=== PATIENT | female | born 1960 | race Caucasian/White ===

== ENCOUNTER 2020-01-16 06:45 | Day surgery (SDC) | payer BC, SELFPAY ==
[~2020-01-16] VITALS: Ht 167.6 cm; Wt 79.4 kg
[2020-01-16] MEDS ORDERED: CEFAZOLIN 1 GM IVPB PREMIX 50 ML IV ONE (07:00)
[2020-01-16] MEDS ORDERED: ONDANSETRON HCL 4 MG/2 ML VIAL IVP PRN (08:30)
[2020-01-16] MEDS ORDERED: fentaNYL CITRATE/PF 100 MCG/2 ML AMP IVP PRN ×2 (08:30)
[2020-01-16] MEDS ORDERED: LIDOCAINE 1%, 20 ML MDV 20 ML ONE (08:37)
[2020-01-16] MEDS ORDERED: AMMONIA INHALANT 0.3mL AMPUL INH ONE (08:54)
[2020-01-16] MEDS ORDERED: fentaNYL CITRATE/PF 100 MCG/2 ML AMP IVP ONE (09:00)
[2020-01-16] MEDS ORDERED: ONDANSETRON HCL 4 MG/2 ML VIAL IVP ONE (09:00)
[2020-01-16] MEDS ORDERED: MIDAZOLAM HCL 5 MG/5 ML VIAL IVP ONE (09:00)
[2020-01-16] MEDS ORDERED: HYDROmorphone 2 MG/ML VIAL IVP ONE (09:00)
[2020-01-16] MEDS ORDERED: PROPOFOL 200MG/ 20ML VIAL (DIPRIVAN) IV ONE (09:00)
[2020-01-16] MEDS ORDERED: LR 1,000 ML IV.SOLN IV ONE (09:00)
[2020-01-16] MEDS ORDERED: NS IRRIG SOLN 1000 ML IR ONE (09:00)
[2020-01-16] MEDS ORDERED: SEVOFLURANE 15 MIN GAS INH ONE (09:00)
[2020-01-16] MEDS ORDERED: D5/0.45 NS 1,000 ML IV SCH (10:39)
[2020-01-16] MEDS ORDERED: HYDROcodone/ACETAMIN 5-325 MG TAB (NORCO/ VICODIN) PO PRN ×2 (10:45)
[2020-01-16] MEDS ORDERED: HYDROmorphone 2 MG/ML VIAL IVP PRN (10:45)
[2020-01-16 15:24] VITALS: BP_SYST 123
== END 2020-01-16 14:30 | disposition home or self-care (01) ==
LOC: SMU 06:45 → SDS 06:45 → EDSTATUS 08:40 → SDS 11:05
PROVIDERS: ATTEND Colon & Rectal Surgery
DX: C50.911 Malignant neoplasm of unspecified site of right female breast (principal); C77.3 Secondary and unspecified malignant neoplasm of axilla and upper limb lymph nodes
CPT/HCPCS: 19281; 19301; 38525; 88305; 88307; 88333; J0690; J1170; J2001; J2250; J2405; J2704; J3010; J7120; U0002

== ENCOUNTER 2020-02-27 07:00 | Day surgery (SDC) | payer BC, SELFPAY ==
[~2020-02-27] VITALS: Ht 167.6 cm; Wt 81.6 kg
[~2020-02-27 07:00] MED LIST: BUPIVACAINE /EPINEPHRINE/PF 0.25% 30 ML VIAL INJ ONE; CEFAZOLIN SOD 1 GM in D5W 50 ML IV ONE; DEXAMETHASONE SOD PHOSPHATE 4 MG/ML VIAL IVP ONE; HEPARIN SODIUM, PORCINE 10,000 UNITS/ 10 ML VIAL MC ONE; LIDOCAINE 1% 10 MG/ML, 20 ML MDV INJ ONE; LR 1,000 ML IV.SOLN IV ONE; MIDAZOLAM HCL 5 MG/5 ML VIAL IVP ONE; NS 100 ML BAG IV ONE; NS IRRIG SOLN 1000 ML IR ONE; ONDANSETRON HCL 4 MG/2 ML VIAL IVP ONE; SEVOFLURANE 15 MIN GAS INH ONE; ePHEDrine sulfate 50 MG/ML VIAL IVP ONE; fentaNYL CITRATE/PF 100 MCG/2 ML AMP IVP ONE
[2020-02-27] MEDS ORDERED: POLYMYXIN 500,000/BACIT.10,000 UNITS in NS IRR 1 L IR ONE (09:38)
[2020-02-27] MEDS ORDERED: MEPERIDINE HCL/PF 25 MG/ML DISP.SYRIN IVP PRN (10:00)
[2020-02-27] MEDS ORDERED: HYDROmorphone 1 MG INJ. 1 MG/ML AMPUL IVP PRN ×3 (10:00→10:30)
[2020-02-27] MEDS ORDERED: ONDANSETRON HCL 4 MG/2 ML VIAL IVP PRN (10:00)
[2020-02-27] MEDS ORDERED: METOCLOPRAMIDE HCL 10 MG/2 ML VIAL IVP PRN (10:00)
[2020-02-27] MEDS ORDERED: LR 1,000 ML IV SCH (10:00)
[2020-02-27] MEDS ORDERED: MIDAZOLAM HCL 2 MG/2 ML VIAL (VERSED) IVP PRN (10:00)
[2020-02-27] MEDS ORDERED: D5/0.45 NS 1,000 ML IV SCH (10:28)
[2020-02-27] MEDS ORDERED: HYDROcodone/ACETAMIN 5-325 MG TAB (NORCO/ VICODIN) PO PRN ×2 (10:30)
[2020-02-27 11:27] VITALS: BP_SYST 127
== END 2020-02-27 12:50 | disposition home or self-care (01) ==
LOC: SMU 07:00 → SDS 07:00
PROVIDERS: ATTEND Colon & Rectal Surgery
DX: C50.911 Malignant neoplasm of unspecified site of right female breast (principal); E03.9 Hypothyroidism, unspecified; Z79.899 Other long term (current) drug therapy; Z11.59 Encounter for screening for other viral diseases
CPT/HCPCS: 36571; 71045; 77001; C1788; J0690; J1100; J1644; J2001; J2250; J2405; J3010; J3490; J7060; J7120 ×2; U0003; 76000

== ENCOUNTER 2020-12-24 07:29 | Day surgery (SDC) | payer BC, SELFPAY ==
[~2020-12-24] VITALS: Ht 165.1 cm; Wt 81.6 kg
[~2020-12-24 07:29] MED LIST changes: -BUPIVACAINE /EPINEPHRINE/PF 0.25% 30 ML VIAL INJ ONE; -DEXAMETHASONE SOD PHOSPHATE 4 MG/ML VIAL IVP ONE; -HEPARIN SODIUM, PORCINE 10,000 UNITS/ 10 ML VIAL MC ONE; -LIDOCAINE 1% 10 MG/ML, 20 ML MDV INJ ONE; -LR 1,000 ML IV.SOLN IV ONE; -MIDAZOLAM HCL 5 MG/5 ML VIAL IVP ONE; -NS 100 ML BAG IV ONE; -NS IRRIG SOLN 1000 ML IR ONE; -ONDANSETRON HCL 4 MG/2 ML VIAL IVP ONE; -SEVOFLURANE 15 MIN GAS INH ONE; -ePHEDrine sulfate 50 MG/ML VIAL IVP ONE; -fentaNYL CITRATE/PF 100 MCG/2 ML AMP IVP ONE
[2020-12-24 10:01] LABS: PROTHROMBIN TIME 10.7 SECS (9.5-12.5)
[2020-12-24] MEDS ORDERED: LR 500 ML IV.SOLN IV ONE (11:01)
[2020-12-24] MEDS ORDERED: fentaNYL CITRATE 250 MCG/5 ML AMP IV ONE (11:01)
[2020-12-24] MEDS ORDERED: SEVOFLURANE 15 MIN GAS INH ONE (11:01)
[2020-12-24] MEDS ORDERED: CEFAZOLIN 2 GM IVPB PREMIX 50 ML IV ONE (11:01)
[2020-12-24] MEDS ORDERED: DEXAMETHASONE SOD PHOSPHATE 4 MG/ML VIAL IVP ONE (11:01)
[2020-12-24] MEDS ORDERED: ONDANSETRON HCL 4 MG/2 ML VIAL IVP ONE (11:01)
[2020-12-24] MEDS ORDERED: MIDAZOLAM HCL 5 MG/5 ML VIAL IVP ONE (11:01)
[2020-12-24] MEDS ORDERED: BUPIVACAINE /PF 0.25% 30 ML VIAL INJ ONE (11:01)
[2020-12-24] MEDS ORDERED: GLYCOPYRROLATE 0.2 MG/ML VIAL IJ ONE (11:01)
[2020-12-24] MEDS ORDERED: NS IRRIG SOLN 1000 ML IR ONE (11:01)
[2020-12-24] MEDS ORDERED: PROPOFOL 200MG/ 20ML VIAL (DIPRIVAN) IV ONE (11:01)
[2020-12-24] MEDS ORDERED: HYDROmorphone 1 INJ. 1 MG/ML CARTRIDGE IVP PRN ×3 (12:00→14:00)
[2020-12-24] MEDS ORDERED: ONDANSETRON HCL 4 MG/2 ML VIAL IVP PRN (12:00)
[2020-12-24] MEDS ORDERED: MIDAZOLAM HCL 2 MG/2 ML VIAL (VERSED) IVP PRN (12:00)
[2020-12-24] MEDS ORDERED: METOCLOPRAMIDE HCL 10 MG/2 ML VIAL IVP PRN (12:00)
[2020-12-24] MEDS ORDERED: MEPERIDINE HCL/PF 25 MG/ML DISP.SYRIN IVP PRN (12:00)
[2020-12-24] MEDS ORDERED: LR 1,000 ML IV SCH (12:00)
[2020-12-24] MEDS ORDERED: D5/0.45 NS 1,000 ML IV SCH (12:30)
[2020-12-24] MEDS: HYDROmorphone 1 INJ. 1 MG/ML CARTRIDGE ONE ×2 (13:13→13:18)
[2020-12-24] MEDS ORDERED: HYDROcodone/ACETAMIN 5-325 MG TAB (NORCO/ VICODIN) PO PRN ×2 (14:00)
[2020-12-24 14:12] VITALS: BP_SYST 130
== END 2020-12-24 15:20 | disposition home or self-care (01) ==
LOC: SDS 07:29 → SMU 07:29 → SDS 15:20
PROVIDERS: ATTEND Colon & Rectal Surgery
DX: R59.0 Localized enlarged lymph nodes (principal); N63.10 Unspecified lump in the right breast, unspecified quadrant; E03.9 Hypothyroidism, unspecified; E66.9 Obesity, unspecified; Z79.01 Long term (current) use of anticoagulants; Z79.899 Other long term (current) drug therapy; Z20.828 Contact with and (suspected) exposure to other viral communicable diseases
CPT/HCPCS: 36415; 38525; 85610; 85730; 88305; J0690 ×2; J1100; J1170; J2250; J2405; J2704; J3010; J3490 ×2; J7060; J7120; U0003; 88307

== ENCOUNTER 2022-12-18 15:51 | Inpatient (IN) | payer BC ==
[~2022-12-18] VITALS: Ht 165.1 cm; Wt 77.1 kg
[2022-12-18 15:55] VITALS: BP_SYST 144
[2022-12-18 16:47] LABS: BASOPHILS % (AUTO) 0.3 % (0.0-2.0); EOSINOPHILS # (AUTO) 0.1 K/uL (0.0-0.4); EOSINOPHILS % (AUTO) 0.9 % (0.0-4.0); HEMATOCRIT 41.6 % (36-48); HEMOGLOBIN 14.3 g/dL (12.0-16.0); LYMPHOCYTES # (AUTO) 0.5 K/uL (1.0-5.5); LYMPHOCYTES % (AUTO) 5.9 % (20.5-51.5); MEAN CORPUSCULAR HEMOGLOBIN 30 pg (27-31); MEAN CORPUSCULAR HGB CONC 34 % (32-36); MEAN CORPUSCULAR VOLUME 88 fL (79.0-98.0); MONOCYTES # (AUTO) 0.7 K/uL (0.0-1.0); MONOCYTES % (AUTO) 8.4 % (1.7-9.3); NEUTROPHILS # (AUTO) 7.3 K/uL (1.8-7.7); NEUTROPHILS % (AUTO) 84.5 % (40.0-70.0); PLATELET COUNT (AUTO) 295 K/uL (130-430); RED BLOOD CELL COUNT(AUTO) 4.72 MIL/uL (4.2-6.2); RED CELL DISTRIBUTION WIDTH 13.8 % (9.0-15.0); WHITE BLOOD COUNT (AUTO) 8.6 K/uL (4.8-10.8)
[2022-12-18 17:03] LABS: ANION GAP 6 (5-15); CALCIUM 7.7 mg/dL (8.4-11.0); CHLORIDE 96 mmol/L (98-107); CREATININE 0.79 mg/dL (0.55-1.30); GFR AFRICAN AMERICAN 95 mL/min (>90); GLUCOSE 123 mg/dL (70-99); UREA NITROGEN, BLOOD 14 mg/dL (8-21)
[2022-12-18 17:10] LABS: ALANINE AMINOTRANSFERASE 58 U/L (12-78); ALBUMIN 2.4 g/dL (3.4-4.8); ASPARTATE AMINOTRANSFERASE 126 U/L (10-37); TOTAL BILIRUBIN 0.5 mg/dL (0.0-1.0)
[2022-12-18] MEDS ORDERED: cefTRIAXone 1 GM IVPB PREMIX 50 ML IV ONE (17:45)
[2022-12-18] MEDS ORDERED: iohexoL 350 mgI/mL, 100 ML INFUS..BTL IV ONE ×2 (18:07→20:29)
[2022-12-18] MEDS ORDERED: TRAM50TA2 PO (18:56)
[2022-12-18] MEDS ORDERED: LEVO100C4 PO (18:56)
[2022-12-18] MEDS: traMADol HCL HCL 50 MG TABLET (ULTRAM) PO PRN (19:52)
[2022-12-18 22:38] VITALS: BP_SYST 146
[2022-12-19] MEDS: traMADol HCL HCL 50 MG TABLET (ULTRAM) PO PRN ×4 (05:03→18:26)
[2022-12-19 08:45] VITALS: BP_SYST 114
[2022-12-19] MEDS ORDERED: ALBUTEROL SULFATE 0.083% 2.5 MG/3 ML VIAL.NEB INH PRN (09:15)
[2022-12-19] MEDS ORDERED: IPRATROPIUM BROM 0.5 MG/2.5 ML VIAL.NEB (ATROVENT) INH PRN (09:15)
[2022-12-19] MEDS ORDERED: ACETAMINOPHEN 325 MG TABLET PO PRN ×2 (09:15→09:45)
[2022-12-19] MEDS ORDERED: ONDANSETRON HCL 4 MG/2 ML VIAL IVP PRN (09:15)
[2022-12-19] MEDS ORDERED: LEVOTHYROXINE SODIUM 0.1 MG TABLET PO ONE (09:30)
[2022-12-19] MEDS ORDERED: POLYETHYLENE GLYCOL 3350, 17 GM/ POWD.PACK PO ONE (10:00)
[2022-12-19] MEDS ORDERED: DOCUSATE SODIUM 100 MG CAPSULE PO ONE (10:00)
[2022-12-19] MEDS: NACL 0.9% 1,000 ML IV SCH ×2 (10:49→23:01)
[2022-12-19 11:37] VITALS: BP_SYST 117
[2022-12-19] MEDS: AZITHROMYCIN 500 MG in NS 250 ML IV SCH (12:34)
[2022-12-19 13:20] VITALS: BP_SYST 117
[2022-12-19] MEDS: LORazepam 2 MG/ML VIAL IVP PRN (14:31)
[2022-12-19] MEDS: IPRATROPIUM/ALBUTEROL SULFATE 3 ML AMPUL.NEB (DUONEB) INH PRN ×2 (15:15→21:24)
[2022-12-19 15:23] VITALS: BP_SYST 118
[2022-12-19 16:52] LABS: INR 1.1 (0.8-1.2); PROTHROMBIN TIME 11.5 SECS (9.5-12.5)
[2022-12-19] MEDS: cefTRIAXone 1 GM IVPB PREMIX 50 ML IV SCH (17:21)
[2022-12-19 20:00] VITALS: BP_SYST 125
[2022-12-19] MEDS ORDERED: FUROSEMIDE 40 MG/4 ML VIAL IVP ONE (21:30)
[2022-12-19] MEDS ORDERED: APIXABAN 2.5 MG TABLET PO SCH (22:15)
[2022-12-19] MEDS ORDERED: *LOVENOX 1MG/KG Q12H/PHARMACY XX ONE (22:30)
[2022-12-19] MEDS: DOCUSATE SODIUM 100 MG CAPSULE PO SCH (22:58)
[2022-12-19] MEDS: MORPHINE 2 MG/ML INJ. SYRINGE IVP PRN (23:01)
[2022-12-20 01:00] VITALS: BP_SYST 132
[2022-12-20] MEDS: MORPHINE 2 MG/ML INJ. SYRINGE IVP PRN ×3 (03:27→14:12)
[2022-12-20 07:23] LABS: CREATININE 0.51 mg/dL (0.55-1.30)
[2022-12-20 07:52] LABS: BASOPHILS % (AUTO) 0.6 % (0.0-2.0); EOSINOPHILS # (AUTO) 0.1 K/uL (0.0-0.4); HEMATOCRIT 38.1 % (36-48); LYMPHOCYTES # (AUTO) 0.5 K/uL (1.0-5.5); LYMPHOCYTES % (AUTO) 6.1 % (20.5-51.5); MEAN CORPUSCULAR HEMOGLOBIN 30 pg (27-31); MEAN CORPUSCULAR HGB CONC 34 % (32-36); MEAN CORPUSCULAR VOLUME 88 fL (79.0-98.0); MONOCYTES # (AUTO) 0.7 K/uL (0.0-1.0); MONOCYTES % (AUTO) 9.6 % (1.7-9.3); NEUTROPHILS # (AUTO) 6.3 K/uL (1.8-7.7); NEUTROPHILS % (AUTO) 82.7 % (40.0-70.0); PLATELET COUNT (AUTO) 256 K/uL (130-430); RED BLOOD CELL COUNT(AUTO) 4.32 MIL/uL (4.2-6.2); RED CELL DISTRIBUTION WIDTH 14.1 % (9.0-15.0); WHITE BLOOD COUNT (AUTO) 7.6 K/uL (4.8-10.8)
[2022-12-20] MEDS ORDERED: ENOXAPARIN SODIUM 80 MG/0.8 ML SYRINGE SUBCUT SCH (09:00)
[2022-12-20] MEDS ORDERED: KCL 40 mEq in 100 mL (PREMIX) 100 ML IV ONE (09:00)
[2022-12-20] MEDS ORDERED: POLYETHYLENE GLYCOL 3350, 17 GM/ POWD.PACK PO SCH (09:00)
[2022-12-20] MEDS: DOCUSATE SODIUM 100 MG CAPSULE PO SCH ×2 (09:55→21:31)
[2022-12-20] MEDS: traMADol HCL HCL 50 MG TABLET (ULTRAM) PO PRN ×2 (09:57→18:45)
[2022-12-20] MEDS: LEVOTHYROXINE SODIUM 0.1 MG TABLET PO SCH (09:58)
[2022-12-20] MEDS: APIXABAN 2.5 MG TABLET PO SCH ×2 (10:00→21:34)
[2022-12-20 10:10] VITALS: BP_SYST 141
[2022-12-20] MEDS ORDERED: MINERAL OIL 30 ML UDC PO ONE (10:45)
[2022-12-20] MEDS ORDERED: POLYETHYLENE GLYCOL 3350, 17 GM/ POWD.PACK PO ONE (10:45)
[2022-12-20] MEDS ORDERED: CALCIUM GLUCONATE 2 GM in NS 100 ML IV ONE (11:00)
[2022-12-20 11:33] VITALS: BP_SYST 135
[2022-12-20] MEDS: AZITHROMYCIN 500 MG in NS 250 ML IV SCH (16:38)
[2022-12-20] MEDS: cefTRIAXone 1 GM IVPB PREMIX 50 ML IV SCH (16:39)
[2022-12-20] MEDS: NORMAL SALINE 5 ML DISP.SYRIN IVF SCH ×2 (16:40→21:32)
[2022-12-20 20:30] VITALS: BP_SYST 131
[2022-12-20] MEDS: POLYETHYLENE GLYCOL 3350, 17 GM/ POWD.PACK PO SCH (21:31)
[2022-12-21 00:24] VITALS: BP_SYST 132
[2022-12-21] MEDS: traMADol HCL HCL 50 MG TABLET (ULTRAM) PO PRN ×3 (00:48→18:41)
[2022-12-21] MEDS: NORMAL SALINE 5 ML DISP.SYRIN IVF SCH ×3 (06:18→21:29)
[2022-12-21 06:42] LABS: BASOPHILS % (AUTO) 0.3 % (0.0-2.0); EOSINOPHILS # (AUTO) 0.1 K/uL (0.0-0.4); EOSINOPHILS % (AUTO) 1.3 % (0.0-4.0); HEMOGLOBIN 13.6 g/dL (12.0-16.0); LYMPHOCYTES # (AUTO) 0.5 K/uL (1.0-5.5); LYMPHOCYTES % (AUTO) 4.9 % (20.5-51.5); MEAN CORPUSCULAR HEMOGLOBIN 30 pg (27-31); MEAN CORPUSCULAR HGB CONC 34 % (32-36); MEAN CORPUSCULAR VOLUME 89 fL (79.0-98.0); MONOCYTES # (AUTO) 0.8 K/uL (0.0-1.0); MONOCYTES % (AUTO) 8.3 % (1.7-9.3); NEUTROPHILS # (AUTO) 7.9 K/uL (1.8-7.7); NEUTROPHILS % (AUTO) 85.2 % (40.0-70.0); PLATELET COUNT (AUTO) 291 K/uL (130-430); RED CELL DISTRIBUTION WIDTH 13.9 % (9.0-15.0); WHITE BLOOD COUNT (AUTO) 9.3 K/uL (4.8-10.8)
[2022-12-21 07:11] LABS: CALCIUM 8.1 mg/dL (8.4-11.0); CREATININE 0.82 mg/dL (0.55-1.30)
[2022-12-21 07:58] LABS: ERYTHROCYTE SEDIMENTATION RATE 53 MM/HR (0-20)
[2022-12-21 08:00] VITALS: BP_SYST 139
[2022-12-21] MEDS: LEVOTHYROXINE SODIUM 0.1 MG TABLET PO SCH (08:01)
[2022-12-21] MEDS: POLYETHYLENE GLYCOL 3350, 17 GM/ POWD.PACK PO SCH ×2 (08:03→21:26)
[2022-12-21] MEDS: MORPHINE 2 MG/ML INJ. SYRINGE IVP PRN (08:06)
[2022-12-21] MEDS: DOCUSATE SODIUM 100 MG CAPSULE PO SCH ×2 (08:20→21:26)
[2022-12-21] MEDS: MINERAL OIL 30 ML UDC PO SCH (08:21)
[2022-12-21] MEDS: APIXABAN 2.5 MG TABLET PO SCH ×2 (08:23→21:27)
[2022-12-21] MEDS ORDERED: GOLYTELY / COLYTE SOLUTION 4 LITERS PO ONE (10:00)
[2022-12-21] MEDS ORDERED: FUROSEMIDE 20 MG TABLET PO ONE (11:15)
[2022-12-21] MEDS: AZITHROMYCIN 500 MG in NS 250 ML IV SCH (12:46)
[2022-12-21] MEDS: cefTRIAXone 1 GM IVPB PREMIX 50 ML IV SCH (12:48)
[2022-12-21 20:30] VITALS: BP_SYST 135
[2022-12-22] MEDS: NORMAL SALINE 5 ML DISP.SYRIN IVF SCH ×3 (05:12→22:00)
[2022-12-22] MEDS: traMADol HCL HCL 50 MG TABLET (ULTRAM) PO PRN ×3 (05:33→20:29)
[2022-12-22] MEDS ORDERED: LIDOCAINE 2% JELLY UROJECT 10 ML MM ONE (05:55)
[2022-12-22] MEDS ORDERED: LIDOCAINE 4% TOPICAL 50 ML BOTTLE MM ONE (05:58)
[2022-12-22 07:15] LABS: ALBUMIN 2.5 g/dL (3.4-4.8); C-REACTIVE PROTEIN QUANT 9.4 mg/dL (0-0.5); CREATININE 0.81 mg/dL (0.55-1.30); TOTAL BILIRUBIN 0.7 mg/dL (0.0-1.0)
[2022-12-22 08:05] LABS: BASOPHILS % (AUTO) 0.4 % (0.0-2.0); EOSINOPHILS # (AUTO) 0.1 K/uL (0.0-0.4); HEMATOCRIT 40.5 % (36-48); HEMOGLOBIN 13.6 g/dL (12.0-16.0); LYMPHOCYTES # (AUTO) 0.5 K/uL (1.0-5.5); LYMPHOCYTES % (AUTO) 6.8 % (20.5-51.5); MEAN CORPUSCULAR HEMOGLOBIN 30 pg (27-31); MEAN CORPUSCULAR HGB CONC 34 % (32-36); MEAN CORPUSCULAR VOLUME 89 fL (79.0-98.0); MONOCYTES # (AUTO) 0.7 K/uL (0.0-1.0); MONOCYTES % (AUTO) 8.9 % (1.7-9.3); NEUTROPHILS # (AUTO) 6.7 K/uL (1.8-7.7); NEUTROPHILS % (AUTO) 82.9 % (40.0-70.0); PLATELET COUNT (AUTO) 309 K/uL (130-430); RED BLOOD CELL COUNT(AUTO) 4.53 MIL/uL (4.2-6.2); RED CELL DISTRIBUTION WIDTH 13.9 % (9.0-15.0)
[2022-12-22 08:46] LABS: ERYTHROCYTE SEDIMENTATION RATE 32 MM/HR (0-20)
[2022-12-22] MEDS: POLYETHYLENE GLYCOL 3350, 17 GM/ POWD.PACK PO SCH ×2 (09:00→20:36)
[2022-12-22] MEDS: MINERAL OIL 30 ML UDC PO SCH (09:00)
[2022-12-22] MEDS: DOCUSATE SODIUM 100 MG CAPSULE PO SCH ×2 (09:00→20:36)
[2022-12-22 09:45] VITALS: BP_SYST 152
[2022-12-22 09:46] VITALS: BP_SYST 152
[2022-12-22] MEDS: APIXABAN 2.5 MG TABLET PO SCH ×2 (09:57→20:30)
[2022-12-22] MEDS: FUROSEMIDE 20 MG TABLET PO SCH (10:11)
[2022-12-22] MEDS: LEVOTHYROXINE SODIUM 0.1 MG TABLET PO SCH (10:13)
[2022-12-22 12:30] VITALS: BP_SYST 159
[2022-12-22] MEDS: AZITHROMYCIN 500 MG in NS 250 ML IV SCH (12:30)
[2022-12-22] MEDS ORDERED: MEGESTROL ACETATE 40 MG TABLET PO ONE (14:15)
[2022-12-22] MEDS ORDERED: Megestrol Acetate PO (14:28)
[2022-12-22] MEDS ORDERED: Mineral Oil 30 Ml Po PO (14:28)
[2022-12-22] MEDS: cefTRIAXone 1 GM IVPB PREMIX 50 ML IV SCH (14:30)
[2022-12-22] MEDS ORDERED: IPRATROPIUM/ALBUTEROL SULFATE 3 ML AMPUL.NEB (DUONEB) INH SCH (15:00)
[2022-12-22 16:30] VITALS: BP_SYST 135
[2022-12-22 18:06] LABS: MYCOPLASMA PNEUMONIAE IgM <770 U/mL (0-769)
[2022-12-22] MEDS: ALBUTEROL SULFATE 0.083% 2.5 MG/3 ML VIAL.NEB INH SCH ×3 (19:37→23:00)
[2022-12-22] MEDS: IPRATROPIUM BROM 0.5 MG/2.5 ML VIAL.NEB (ATROVENT) INH SCH ×3 (19:38→23:00)
[2022-12-22 20:00] VITALS: BP_SYST 124
[2022-12-22] MEDS: MEGESTROL ACETATE 40 MG TABLET PO SCH (20:29)
[2022-12-23] VITALS (8 sets, daily range): BP systolic 115–152
[2022-12-23] MEDS: traMADol HCL HCL 50 MG TABLET (ULTRAM) PO PRN ×3 (02:28→19:57)
[2022-12-23] MEDS: LORazepam 2 MG/ML VIAL IVP PRN (02:30)
[2022-12-23] MEDS: IPRATROPIUM BROM 0.5 MG/2.5 ML VIAL.NEB (ATROVENT) INH SCH ×6 (03:00→23:00)
[2022-12-23] MEDS: ALBUTEROL SULFATE 0.083% 2.5 MG/3 ML VIAL.NEB INH SCH ×6 (03:00→23:00)
[2022-12-23 04:58] LABS: BASOPHILS # (AUTO) 0.1 K/uL (0.0-0.2); BASOPHILS % (AUTO) 1.2 % (0.0-2.0); EOSINOPHILS # (AUTO) 0.1 K/uL (0.0-0.4); EOSINOPHILS % (AUTO) 0.6 % (0.0-4.0); HEMATOCRIT 39.4 % (36-48); HEMOGLOBIN 13.1 g/dL (12.0-16.0); LYMPHOCYTES # (AUTO) 0.5 K/uL (1.0-5.5); LYMPHOCYTES % (AUTO) 4.9 % (20.5-51.5); MEAN CORPUSCULAR HEMOGLOBIN 30 pg (27-31); MEAN CORPUSCULAR HGB CONC 33 % (32-36); MEAN CORPUSCULAR VOLUME 89 fL (79.0-98.0); MONOCYTES # (AUTO) 0.8 K/uL (0.0-1.0); MONOCYTES % (AUTO) 8.4 % (1.7-9.3); NEUTROPHILS # (AUTO) 8.2 K/uL (1.8-7.7); NEUTROPHILS % (AUTO) 84.9 % (40.0-70.0); PLATELET COUNT (AUTO) 330 K/uL (130-430); RED BLOOD CELL COUNT(AUTO) 4.44 MIL/uL (4.2-6.2); RED CELL DISTRIBUTION WIDTH 13.8 % (9.0-15.0); WHITE BLOOD COUNT (AUTO) 9.7 K/uL (4.8-10.8)
[2022-12-23 05:14] LABS: CREATININE 0.86 mg/dL (0.55-1.30)
[2022-12-23 06:06] LABS: COCCIDIOIDES AB IGG 0.3 IV (<=0.9); COCCIDIOIDES AB IGM 0.2 IV (<=0.9)
[2022-12-23] MEDS: NORMAL SALINE 5 ML DISP.SYRIN IVF SCH ×3 (07:02→21:32)
[2022-12-23] MEDS: DOCUSATE SODIUM 100 MG CAPSULE PO SCH ×2 (09:00→21:00)
[2022-12-23] MEDS: MINERAL OIL 30 ML UDC PO SCH (09:00)
[2022-12-23] MEDS: APIXABAN 2.5 MG TABLET PO SCH (09:00)
[2022-12-23] MEDS: POLYETHYLENE GLYCOL 3350, 17 GM/ POWD.PACK PO SCH ×2 (09:00→21:30)
[2022-12-23] MEDS: LEVOTHYROXINE SODIUM 0.1 MG TABLET PO SCH (10:21)
[2022-12-23] MEDS: FUROSEMIDE 20 MG TABLET PO SCH (10:21)
[2022-12-23] MEDS: MEGESTROL ACETATE 40 MG TABLET PO SCH ×2 (10:22→21:32)
[2022-12-23] MEDS ORDERED: TORSEMIDE 10 MG PO ONE (11:30)
[2022-12-23] MEDS ORDERED: TORS10TA15 PO (12:06)
[2022-12-23] MEDS: AZITHROMYCIN 500 MG in NS 250 ML IV SCH (12:57)
[2022-12-23] MEDS: cefTRIAXone 1 GM IVPB PREMIX 50 ML IV SCH (15:18)
[2022-12-24 00:24] VITALS: BP_SYST 113
[2022-12-24] MEDS: traMADol HCL HCL 50 MG TABLET (ULTRAM) PO PRN ×2 (01:52→08:42)
[2022-12-24] MEDS: NORMAL SALINE 5 ML DISP.SYRIN IVF SCH (05:10)
[2022-12-24] MEDS: IPRATROPIUM BROM 0.5 MG/2.5 ML VIAL.NEB (ATROVENT) INH SCH ×2 (07:45→10:49)
[2022-12-24] MEDS: ALBUTEROL SULFATE 0.083% 2.5 MG/3 ML VIAL.NEB INH SCH ×2 (07:45→10:49)
[2022-12-24 08:00] VITALS: BP_SYST 130
[2022-12-24] MEDS: POLYETHYLENE GLYCOL 3350, 17 GM/ POWD.PACK PO SCH (08:34)
[2022-12-24] MEDS: LEVOTHYROXINE SODIUM 0.1 MG TABLET PO SCH (08:34)
[2022-12-24] MEDS: MEGESTROL ACETATE 40 MG TABLET PO SCH (08:42)
[2022-12-24] MEDS: DOCUSATE SODIUM 100 MG CAPSULE PO SCH (08:44)
[2022-12-24] MEDS: MINERAL OIL 30 ML UDC PO SCH (08:46)
[2022-12-24] MEDS ORDERED: TORSEMIDE 10 MG PO SCH (09:00)
[2022-12-24 11:37] VITALS: BP_SYST 130
[2022-12-24] MEDS: cefTRIAXone 1 GM IVPB PREMIX 50 ML IV SCH (13:10)
[2022-12-24 14:00] VITALS: BP_SYST 103
== END 2022-12-24 15:15 | disposition home health service (06) | DRG 180 ==
LOC: SED 15:51 → STU 18:05
PROVIDERS: ADMIT Internal Medicine; ATTEND Internal Medicine
DX: C78.00 Secondary malignant neoplasm of unspecified lung (principal); E43 Unspecified severe protein-calorie malnutrition; J18.9 Pneumonia, unspecified organism; J96.01 Acute respiratory failure with hypoxia; C78.7 Secondary malignant neoplasm of liver and intrahepatic bile duct; C78.89 Secondary malignant neoplasm of other digestive organs; D84.9 Immunodeficiency, unspecified; I82.432 Acute embolism and thrombosis of left popliteal vein; E87.1 Hypo-osmolality and hyponatremia; J91.0 Malignant pleural effusion; F11.20 Opioid dependence, uncomplicated; C50.919 Malignant neoplasm of unspecified site of unspecified female breast; E83.51 Hypocalcemia; E88.09 Other disorders of plasma-protein metabolism, not elsewhere classified; I89.0 Lymphedema, not elsewhere classified; Z20.822 Contact with and (suspected) exposure to COVID-19; T40.2X5A Adverse effect of other opioids, initial encounter; R73.9 Hyperglycemia, unspecified; K59.00 Constipation, unspecified; Z92.3 Personal history of irradiation; Z85.3 Personal history of malignant neoplasm of breast; Z92.21 Personal history of antineoplastic chemotherapy; Z79.01 Long term (current) use of anticoagulants; Y92.89 Other specified places as the place of occurrence of the external cause; Z68.28 Body mass index [BMI] 28.0-28.9, adult
CPT/HCPCS: 36415; 71045; 71275; 76376; 76604; 80048; 80053; 83605; 83880; 84484; 85025; 85379; 85610-TC; 85651-TC; 85730-TC; 86140; 86635; 86738; 87040; 87305; 93005; 93970; 94640; 94760; 96365; 99285; C1751; G0378; J0456; J0610; J0696; J1940; J2060; J2270; J3480; J7030; J7050; J7613; Q9967